=== PATIENT | female | born 1970 | race American Indian/Alaskan Native ===

== ENCOUNTER 2016-07-28 09:33 | Day surgery (SDC) | payer OTHER ==
[2016-07-24 12:07] VITALS: BMI 24.0
[2016-07-28] MEDS ORDERED: Propofol 10 mg/ml Inj (20 ML) ONE (09:43)
[2016-07-28 10:01] VITALS: RESP 18
[2016-07-28] MEDS ORDERED: Oxytocin 20 units in LR 0 ML IV ONE (10:25)
[2016-07-28] MEDS ORDERED: Ferric Subsulfate Sol(60 mL) ONE (10:26)
[2016-07-28] MEDS ORDERED: Midazolam 2 MG/2 ML VIAL ONE (10:37)
[2016-07-28] MEDS: Lactated Ringer's 1,000 ML IV ONE ×2 (11:18→12:52)
[2016-07-28] MEDS ORDERED: Dexamethasone 4 mg/1 ml ONE (11:20)
[2016-07-28] MEDS ORDERED: HYDROmorphone 0.5 mg/0.5 ml ISec IVP PRN (12:56)
--- NOTE | 2016-07-28 13:00 | PCM.SURG1 ---
Surgeon's Initial Post Op Note - Surgeon's Notes Surgeon: Evelyne Hydrotechnical Specialist: N/A Type of Anesthesia: General Endo Pre-Operative Diagnosis: Menorrhagia Operative Findings: Multiple submucosal fibroids. Otherwise normal appearing pelvic anatomy. Post-Operative Diagnosis: Same + submucosal uterine fibroids Operation Performed: Hysteroscopic myomectomy Specimen/Specimens Removed: Fragments of uterine fibroids Estimated Blood Loss: EBL {In ML}: 150 Blood Products Given: N/A Drains Used: No Drains Post-Op Condition: Good Date of Surgery/Procedure: 07/28/16 Time of Surgery/Procedure: 13:01
--- NOTE | 2016-07-28 13:04 | CP.PCM.DIS ---
Provider - Provider Date of Admission: 07/28/16 Attending physician: Antoine Stubbs MD Primary care physician: Ricardo Canada MD Time Spent in preparation of Discharge (in minutes): 10 Diagnosis - Discharge Diagnosis (1) Menorrhagia Status: Acute Priority: Medium (2) Uterine fibroid Status: Acute Priority: Medium Hospital Course - Date & Time of H&P Date of H&P: 07/28/16 Time of H&P: 13:03 Discharge Plan - Follow Up Plan Condition: GOOD Disposition: HOME/ ROUTINE Referrals: Ricardo Canada MD [Primary Care Provider] -
[2016-07-28] MEDS ORDERED: Oxycodone/Acetaminophen 5/325 mg Tab PO PRN (13:06)
--- NOTE | 2016-07-28 13:56 | OP ---
PROCEDURE DATE: 07/28/2016 PREOPERATIVE DIAGNOSIS: Menorrhagia. POSTOPERATIVE DIAGNOSES: Menorrhagia, multiple submucosal fibroids. OPERATION PERFORMED: Hysteroscopic myomectomy. COMPLICATIONS: None. ESTIMATED BLOOD LOSS: 150 mL. FLUIDS: 1000 mL lactated Ringer's. URINE OUTPUT: 100 mL of clear urine. SURGEON: Antoine Stubbs MD ANESTHESIA: General. OPERATIVE FINDINGS: Normal appearing pelvic anatomy, endometrium with multiple submucosal uterine fi broids. PROCEDURE: The patient was taken to the operating room where general anesthesia was found to be adeq uate. The patient was prepped and draped in normal sterile fashion in the dorsal lithotomy position. A weighted speculum was placed at the posterior aspect of the vagina. A Doe retractor was placed at the anterior surface of the vagina. The cervix was dilated with [place] dilators to a size of 20 Fr ench. Hysteroscope was placed through the cervix into the uterine cavity. The uterine cavity was vi sualized and the above findings noted. The MyoSure device was placed through the hysteroscope into the uterine cavity. Under direct visuali zation, 3 uterine fibroids were removed using MyoSure device. After removal of each uterine fibroid, surgical site was found to be hemostatic. After removal of the fibroids, endometrium found to be he mostatic. All instruments were removed from the patient. The cervix was found to be hemostatic following the p rocedure. The patient tolerated the procedure well. All sponge, lap, and needle counts were correct x 2. Ther e were no complications. The patient was taken to the recovery room awake and in stable condition. Antoine Stubbs MD cc: [id number] TT: 07/28/2016 13:55:46 sn
[2016-07-28 14:36] VITALS: PULSE 71
[2016-07-28 15:42] VITALS: BP 151/77; TEMP 97.1; O2SAT 97
== END 2016-07-28 16:16 | disposition home or self-care (01) ==
LOC: H.OPSURG 09:33
PROVIDERS: ATTEND Obstetrics & Gynecology
DX: N92.0 Excessive and frequent menstruation with regular cycle (principal); D25.0 Submucous leiomyoma of uterus